=== PATIENT | male | born 1985 | race Caucasian/White ===

== ENCOUNTER → 2020-05-06 | Outpatient (CLI) | payer BC, SELFPAY ==
[2020-05-06 11:58] VITALS: BMI 32.5
== END | disposition home or self-care (01) ==
LOC: LABSPEC 15:24
PROVIDERS: Visit Provider Physician Assistant Surgical
DX: Z20.828 Contact with and (suspected) exposure to other viral communicable diseases (principal)
CPT/HCPCS: 87635; U0003

== ENCOUNTER → 2022-06-18 | Outpatient (CLI) | payer BC, SELFPAY ==
[2022-06-18 10:02] LABS: Hematocrit 53.8 % (40-54)
[2022-06-18 10:46] LABS: Hemoglobin 18.3 g/dL (13.0-16.5)
[2022-06-18 15:06] LABS: ALB/GLOB Ratio 1.1 RATIO (0.9-2.4); AST(SGOT) 72 U/L (15-37); Alanine Aminotransfer ALT/SGPT 134 U/L (16-61); Alkaline Phosphatase 85 U/L (45-117); Anion Gap 7 (5-15); BUN 16 mg/dL (7-18); BUN/Creat Ratio 13.3 RATIO (10-20); Chloride 104 mmol/L (98-107); Cholesterol 213 mg/dL (200); EST Glomerular Filtration Rate 72 mL/min (>60); Est Glom Filt Rate - Afr Amer 87 mL/min (>60); Estradiol 19.3 pg/mL; Follicle Stimulating Hormone 0.7 mIU/mL; Globulin 3.7 g/dL (2.2-4.2); Glucose 87 mg/dL (74-106); High Density Lipoprotein 34 mg/dL; Luteinizing Hormone 0.3 mIU/mL; PSA,Total - Annual Screen 0.33 ng/mL (0.00-4.00); Potassium 4.4 mmol/L (3.5-5.1); Prolactin 4.8 ng/mL; Protein, Total 7.7 g/dL (6.4-8.2); Sodium Level 138 mmol/L (136-145); Thyroid Stim Hormone (TSH) 2.13 uIU/mL (0.358-3.74); Triglycerides 110 mg/dL; Very Low Density Lipoprotein 22 mg/dL (5-40)
[2022-06-23 10:08] LABS: Testosterone, Free 2.09 ng/dL (5.00-21.00)
[2022-06-24 21:44] LABS: Testosterone, Total 139 ng/dL (264-916)
== END | disposition home or self-care (01) ==
PROVIDERS: PCP Family Medicine; Referring Provider Registered Nurse; Visit Provider Registered Nurse
DX: Z00.00 Encounter for general adult medical examination without abnormal findings (principal); E29.1 Testicular hypofunction; R53.83 Other fatigue; Z12.5 Encounter for screening for malignant neoplasm of prostate
CPT/HCPCS: 36415; 80053; 80061; 82670; 83001; 83002; 84146; 84153; 84270; 84402; 84403; 84443; 85014; 85018; G0103